=== PATIENT | male | born 1985 ===

== ENCOUNTER 2020-09-01 01:54 | Outpatient (CLI) | payer OTHER, SELFPAY ==
[2020-09-01 12:00] LABS: Source Nasal/Nares
[2020-09-01 14:35] LABS: COVID-19 PCR Negative (Negative)
== END 2020-09-01 01:55 | disposition home or self-care (01) ==
LOC: LBO 01:54
PROVIDERS: Visit Provider Family Medicine
DX: Z20.822 Contact with and (suspected) exposure to COVID-19 (principal); Z01.818 Encounter for other preprocedural examination
CPT/HCPCS: 87635

== ENCOUNTER 2020-09-04 04:36 | Outpatient (CLI) | payer OTHER, SELFPAY ==
[2020-09-04] MEDS: Inhaler, Assist Device 1 EACH MC (10:58)
[2020-09-04] MEDS: Albuterol HFA 18 GM 200 PUFF INH IH (10:58)
--- NOTE | 2020-09-06 10:31 | W.PFT ---
Date of service: 09/04/20 Time of Service: 10:03 Pulmonary Function Test Result Interpretation Spirometry: Borderline mild obstructive airways disease which may be a normal variant, there is some bronchodilator response but it did not reach ATS defineed significance Lung Volumes: No evidence of restriction, mild hyperinflation Diffusion Capacity: Normal Airway Pressure: Elevated Impression The overall pattern is consistent with mild obstructive airways disease with some but not significant bronchodilator response, associated with hyperinflation and elevated airways resistance Clinical Correlation therefore is recommended.
== END 2020-09-04 04:37 | disposition home or self-care (01) ==
LOC: RT 04:37
PROVIDERS: Visit Provider Orthopaedic Surgery
DX: J45.990 Exercise induced bronchospasm (principal); Z72.0 Tobacco use; Z02.71 Encounter for disability determination
CPT/HCPCS: 94060; 94726; 94729